=== PATIENT | male | born 1940 | race Caucasian/White ===

== ENCOUNTER 2017-12-13 09:22 | Emergency (ER) | payer MEDICARE, OTHER ==
[~2017-12-13] VITALS: Ht 182.9 cm; Wt 136.1 kg
[2017-12-13] MEDS: KETOROLAC TROMETH 60MG/2ML VIAL IM ONE (12:15)
[2017-12-13 14:37] VITALS: BP 126/27
== END 2017-12-13 14:58 | disposition home or self-care (01) ==
LOC: ER 09:22 → EDBD 09:22 → ER 14:58
DX: S82.891A Other fracture of right lower leg, initial encounter for closed fracture (principal); S83.91XA Sprain of unspecified site of right knee, initial encounter; E78.5 Hyperlipidemia, unspecified; I50.9 Heart failure, unspecified; W19.XXXA Unspecified fall, initial encounter; Y93.89 Activity, other specified; Y92.89 Other specified places as the place of occurrence of the external cause; Y99.8 Other external cause status
CPT/HCPCS: 29515; 73562; 73610; 96372; 99284; J1885